=== PATIENT | female | born 2000 | race African-American/Black ===

== ENCOUNTER 2023-09-18 20:33 | Emergency (ER) | payer SELFPAY ==
[2023-09-19] MEDS ORDERED: Ibuprofen 200 MG TAB ONE (01:30)
== END 2023-09-19 01:37 | disposition home or self-care (01) ==
LOC: ERS 20:33
DX: S62.667A Nondisplaced fracture of distal phalanx of left little finger, initial encounter for closed fracture (principal); F17.290 Nicotine dependence, other tobacco product, uncomplicated; W22.8XXA Striking against or struck by other objects, initial encounter; Y93.E5 Activity, floor mopping and cleaning

== ENCOUNTER 2024-02-23 08:56 | Emergency (ER) | payer SELFPAY ==
[2024-02-23] MEDS ORDERED: Ondansetron ODT 4 MG TAB ONE (09:33)
[2024-02-23] MEDS ORDERED: Ketorolac Tromethamine 30 MG (1 mL) VIAL ONE (09:33)
[2024-02-23 09:39] LABS: #Basophils 0.03 10x3/uL (0.0-0.2); %Basophils 0.3 % (0.0-1.0); %Lymphocytes 17.3 % (21.0-51.0); %Monocytes 6.1 % (0.0-10.0); %Neutrophils 74.9 % (42.0-75.0); Hematocrit 43.6 % (36.0-47.0); Hemoglobin 14.4 g/dL (12.0-16.0); Mean Corpuscular Hemoglobin 27.6 pg (27.0-31.0); Mean Corpuscular Volume 83.7 fL (78.0-98.0); Mean Platelet Volume 12.2 fL (7.4-10.4); Platelet Count 182 10x3/uL (130-400); RBC Distribution Width 13.8 % (11.5-14.5); Red Blood Cell (RBC) Count 5.21 mill/uL (4.20-5.40)
[2024-02-23 09:56] LABS: Bilirubin Negative (Negative); Blood, Urine Negative (Negative); Glucose, Urine (Dipstick) Negative (Negative); Ketone, Urine Negative (Negative); Leukocyte Negative (Negative); Nitrite Negative (Negative); Protein, Urine (Dipstick) Negative (Neg-Trace); Urobilinogen 0.2 mg/dL (Less than 2)
[2024-02-23 09:57] LABS: Clarity Clear (Clear); Specific Gravity, Urine 1.022 (1.002-1.036)
[2024-02-23 09:58] LABS: Bacteria/HPF None Seen HPF (None Seen); CAUTI Indications for Culture Pelvic or flank pain; Pregnancy Test - Urine (BHCG) POSITIVE (Negative); Pregu Control Background? CLEAR/WHITE (CLR/WHITE); Pregu Control Bar Appear? YES (CONTROL BAR); RBC/HPF 0-3 HPF (0-3); Specific Gravity 1.022 (1.002-1.036); WBC/HPF 0-3 HPF (0-3)
[2024-02-23 09:59] LABS: Urine Culture Reflex No No
[2024-02-23 09:59] LABS: ALT (SGPT) 26 U/L (8-55); AST (SGOT) 37 U/L (5-34); Albumin 3.7 g/dL (3.5-5.0); Alkaline Phosphatase 46 U/L (40-110); Anion Gap 13 mmol/L (10-20); BUN (Urea Nitrogen) 8 mg/dL (7.0-18.7); Bilirubin, Total 0.7 mg/dL (0.2-1.2); Calc. Creatinine Clearance 0 mL/min (70-130); Calcium 9.1 mg/dL (7.8-10.44); Carbon Dioxide 21 mmol/L (22-29); Chloride 109 mmol/L (98-107); Estimated GFR 111; Globulin 2.6 g/dL (2.4-3.5); Glucose 100 mg/dL (70-105); Potassium 3.9 mmol/L (3.5-5.1); Protein, Total 6.3 g/dL (6.0-8.3); Sodium 139 mmol/L (136-145)
== END 2024-02-23 10:22 | disposition home or self-care (01) ==
LOC: ERS 08:56
DX: O99.891 Other specified diseases and conditions complicating pregnancy (principal); R10.30 Lower abdominal pain, unspecified; O99.330 Smoking (tobacco) complicating pregnancy, unspecified trimester; F17.290 Nicotine dependence, other tobacco product, uncomplicated; Z3A.00 Weeks of gestation of pregnancy not specified
CPT/HCPCS: 36415; 80053; 81001; 81025; 85025; 99284; J1885; Q0162

== ENCOUNTER 2024-03-27 14:14 | Emergency (ER) | payer SELFPAY ==
[2024-03-27 14:54] LABS: #Basophils 0.03 10x3/uL (0.0-0.2); %Basophils 0.4 % (0.0-1.0); %Eosinophils 1.3 % (0.0-10.0); %Lymphocytes 20.3 % (21.0-51.0); %Monocytes 6.6 % (0.0-10.0); Hematocrit 40.9 % (36.0-47.0); Hemoglobin 13.7 g/dL (12.0-16.0); Mean Corpuscular HGB CONC 33.5 g/dL (32.0-36.0); Mean Corpuscular Volume 80.7 fL (78.0-98.0); Mean Platelet Volume 12.1 fL (7.4-10.4); Platelet Count 229 10x3/uL (130-400); RBC Distribution Width 13.6 % (11.5-14.5); Red Blood Cell (RBC) Count 5.07 mill/uL (4.20-5.40)
[2024-03-27 15:39] LABS: Bacteria/HPF None Seen HPF (None Seen); Bilirubin Negative (Negative); Blood, Urine Negative (Negative); CAUTI Indications for Culture Pelvic or flank pain; Clarity Clear (Clear); Glucose, Urine (Dipstick) Normal (Negative); Ketone, Urine Trace mg/dL (Negative); Leukocyte Negative Leu/uL (Negative); Nitrite Negative (Negative); Protein, Urine (Dipstick) Negative (Neg-Trace); RBC/HPF 0-3 HPF (0-3); Squamous Epithelial 0-3 HPF (0-3); Urobilinogen Normal mg/dL (Less than 2); WBC/HPF 0-3 HPF (0-3); pH, Urine 5.5 (5.0-9.0)
[2024-03-27 15:41] LABS: Urine Culture Reflex No No
== END 2024-03-27 18:09 | disposition home or self-care (01) ==
LOC: ERS 14:14
DX: O20.8 Other hemorrhage in early pregnancy (principal); O34.11 Maternal care for benign tumor of corpus uteri, first trimester; Z3A.10 10 weeks gestation of pregnancy
CPT/HCPCS: 36415; 76801; 81001; 84702; 85025; 86850; 86900; 86901

== ENCOUNTER 2024-03-29 11:45 | Emergency (ER) | payer SELFPAY ==
[2024-03-29 12:39] LABS: #Basophils 0.03 10x3/uL (0.0-0.2); %Basophils 0.4 % (0.0-1.0); %Eosinophils 1.3 % (0.0-10.0); %Lymphocytes 18.5 % (21.0-51.0); %Monocytes 6.8 % (0.0-10.0); %Neutrophils 72.7 % (42.0-75.0); Hematocrit 37.9 % (36.0-47.0); Hemoglobin 12.5 g/dL (12.0-16.0); Mean Corpuscular Hemoglobin 26.7 pg (27.0-31.0); Mean Platelet Volume 12.5 fL (7.4-10.4); Platelet Count 210 10x3/uL (130-400); RBC Distribution Width 13.5 % (11.5-14.5); Red Blood Cell (RBC) Count 4.68 mill/uL (4.20-5.40)
[2024-03-29 13:03] LABS: Bacteria/HPF None Seen HPF (None Seen); Bilirubin Negative (Negative); Blood, Urine Negative (Negative); CAUTI Indications for Culture Pregnancy; Clarity Clear (Clear); Glucose, Urine (Dipstick) Normal (Negative); Ketone, Urine Negative (Negative); Leukocyte Negative Leu/uL (Negative); Nitrite Negative (Negative); Protein, Urine (Dipstick) Negative (Neg-Trace); RBC/HPF 0-3 HPF (0-3); Squamous Epithelial None Seen HPF (0-3); Urobilinogen Normal mg/dL (Less than 2); WBC/HPF 0-3 HPF (0-3)
[2024-03-29 13:05] LABS: Urine Culture Reflex Yes Yes
== END 2024-03-29 13:55 | disposition home or self-care (01) ==
LOC: ERS 11:45
DX: O20.8 Other hemorrhage in early pregnancy (principal); Z3A.09 9 weeks gestation of pregnancy; Z75.3 Unavailability and inaccessibility of health-care facilities
CPT/HCPCS: 36415; 81001; 84702; 85025; 87086

== ENCOUNTER 2024-05-15 12:57 | Emergency (ER) | payer MEDICAID ==
[2024-05-15 15:27] LABS: #Basophils Less than 0.03 10x3/uL (0.0-0.2); %Basophils 0.3 % (0.0-1.0); %Eosinophils 1.7 % (0.0-10.0); %Lymphocytes 20.4 % (21.0-51.0); %Monocytes 6.6 % (0.0-10.0); %Neutrophils 70.4 % (42.0-75.0); Hemoglobin 11.4 g/dL (12.0-16.0); Mean Corpuscular HGB CONC 32.6 g/dL (32.0-36.0); Mean Corpuscular Hemoglobin 27.5 pg (27.0-31.0); Mean Corpuscular Volume 84.5 fL (78.0-98.0); Mean Platelet Volume 12.1 fL (7.4-10.4); Platelet Count 210 10x3/uL (130-400); RBC Distribution Width 14.1 % (11.5-14.5); Red Blood Cell (RBC) Count 4.14 mill/uL (4.20-5.40)
[2024-05-15 15:40] LABS: Bacteria/HPF None Seen HPF (None Seen); Bilirubin Negative (Negative); Blood, Urine Negative (Negative); CAUTI Indications for Culture Pregnancy; Clarity Clear (Clear); Glucose, Urine (Dipstick) Normal (Negative); Ketone, Urine Negative (Negative); Leukocyte Negative Leu/uL (Negative); Nitrite Negative (Negative); Protein, Urine (Dipstick) Negative (Neg-Trace); RBC/HPF 0-3 HPF (0-3); Squamous Epithelial 0-3 HPF (0-3); Urobilinogen Normal mg/dL (Less than 2); WBC/HPF 0-3 HPF (0-3); pH, Urine 7.5 (5.0-9.0)
[2024-05-15 15:44] LABS: Urine Culture Reflex Yes Yes
[2024-05-15 15:49] LABS: ALT (SGPT) 16 U/L (8-55); AST (SGOT) 18 U/L (5-34); Albumin 3.4 g/dL (3.5-5.0); Alkaline Phosphatase 53 U/L (40-110); Anion Gap 11 mmol/L (10-20); BUN (Urea Nitrogen) 4 mg/dL (7.0-18.7); Bilirubin, Total 0.2 mg/dL (0.2-1.2); Calc. Creatinine Clearance 0 mL/min (70-130); Calcium 9.2 mg/dL (7.8-10.44); Carbon Dioxide 20 mmol/L (22-29); Chloride 109 mmol/L (98-107); Estimated GFR 127; Globulin 3.3 g/dL (2.4-3.5); Glucose 75 mg/dL (70-105); Potassium 3.5 mmol/L (3.5-5.1); Protein, Total 6.7 g/dL (6.0-8.3); Sodium 136 mmol/L (136-145)
== END 2024-05-15 16:38 | disposition home or self-care (01) ==
LOC: ERS 12:57
DX: O99.891 Other specified diseases and conditions complicating pregnancy (principal); M54.50 Low back pain, unspecified; Z3A.16 16 weeks gestation of pregnancy; W18.00XA Striking against unspecified object with subsequent fall, initial encounter
CPT/HCPCS: 36415; 76815; 80053; 81001; 84702; 85025; 86900; 86901; 87086

== ENCOUNTER 2025-09-10 13:52 | Emergency (ER) | payer OTHER ==
[2025-09-10 14:47] LABS: #Basophils 0.04 10x3/uL (0.0-0.2); #Eosinophils 0.10 10x3/uL (0.0-0.7); #Monocytes 0.52 10x3/uL (0.11-0.59); #Neutrophils 4.85 10x3/uL (1.40-6.50); %Basophils 0.6 % (0.0-1.0); %Eosinophils 1.5 % (0.0-10.0); %Lymphocytes 17.8 % (21.0-51.0); %Monocytes 7.7 % (0.0-10.0); %Neutrophils 72.1 % (42.0-75.0); Hematocrit 38.2 % (36.0-47.0); Hemoglobin 11.9 g/dL (12.0-16.0); Mean Corpuscular Hemoglobin 22.7 pg (27.0-31.0); Mean Corpuscular Volume 72.9 fL (78.0-98.0); Platelet Count 246 10x3/uL (130-400); Red Blood Cell (RBC) Count 5.24 mill/uL (4.20-5.40); White Blood Cell (WBC) Count 6.73 10x3/uL (4.8-10.8)
[2025-09-10 14:51] LABS: BHCG - Serum POSITIVE (NEGATIVE); Pregs Control Background? CLEAR/WHITE (CLR/WHITE); Pregs Control Bar Appear? YES (CONTROL BAR)
[2025-09-10 15:05] LABS: ALT (SGPT) 31 U/L (Less than 34); AST (SGOT) 21 U/L (11-34); Albumin 4.1 g/dL (3.1-4.5); Alkaline Phosphatase 63 U/L (40-110); Anion Gap 14 mmol/L (10-20); BUN (Urea Nitrogen) 8 mg/dL (7.0-18.7); Bilirubin, Total 0.3 mg/dL (0.3-1.2); Calc. Creatinine Clearance 0 mL/min (70-130); Calcium 9.4 mg/dL (7.8-10.44); Carbon Dioxide 19 mmol/L (22-29); Chloride 112 mmol/L (98-107); Globulin 2.7 g/dL (2.4-3.5); Glucose 86 mg/dL (70-105); Lipase 25 U/L (8-78); Potassium 3.8 mmol/L (3.5-5.1); Sodium 141 mmol/L (136-145)
[2025-09-10 15:36] LABS: Bacteria/HPF None Seen HPF (None Seen); CAUTI Indications for Culture Pelvic or flank pain; Glucose, Urine (Dipstick) Normal (Negative); Leukocyte Negative Leu/uL (Negative); Protein, Urine (Dipstick) Negative (Neg-Trace); RBC/HPF 0-3 HPF (0-3); Specific Gravity, Urine 1.027 (1.002-1.036); WBC/HPF 0-3 HPF (0-3)
[2025-09-10 15:37] LABS: Urine Culture Reflex No No
== END 2025-09-10 18:05 | disposition home or self-care (01) ==
LOC: ERS 13:52
DX: R10.30 Lower abdominal pain, unspecified (principal); Z33.1 Pregnant state, incidental; Z55.6 Problems related to health literacy
CPT/HCPCS: 76801; 76817; 80053; 81001; 83690; 84702; 84703; 85025; 96374